=== PATIENT | male | born 1965 | race Caucasian/White ===

== ENCOUNTER 2023-08-27 11:17 | Emergency (ER) | payer BC, SELFPAY ==
[2023-08-27 11:19] VITALS: BP 129/80; PULSE 60; RESP 16; TEMP 36.6; O2SAT 97; BMI 27.7
--- NOTE | 2023-08-27 12:02 | ED.GENADULT ---
HPI - General Adult General Chief complaint: Neuro Symptoms/Altered Deficit Stated complaint: right arm and leg tingling Time Seen by Provider: 08/27/23 11:19 History of Present Illness HPI narrative: This 58-year-old male called in to clinic wanting an appointment because of tingling in his right arm and leg. He was instructed to be seen today to rule out a stroke. He went to urgent care and the nurse called here stating that they were unable to rule out a stroke. He was sent here for that purpose. The patient has not had any physician look at him through this whole process. He reports that he has had tingling in his right arm and leg for most of the past 3 or 4 years. He states that symptoms have worsened a little bit over the last 3 or 4 weeks. He had some difficulty sleeping because of these symptoms but reported that he switched his pillow and now he is sleeping well at night. He does not report any speech change or unilateral weakness. He is able to ambulate and function normally. He does not have any history of blood clot and has no risk factors other than age for stroke. He does not report a headache. He did have an MRI a couple years ago which showed degenerative changes in his neck and spine. Related Data Home Medications ?Medication ?Instructions ?Recorded ?Confirmed levothyroxine 150 mcg tablet 150 mcg PO DAILY 08/27/23 08/27/23 (Synthroid) Previous Rx's ?Medication ?Instructions ?Recorded cyclobenzaprine 10 mg tablet 10 mg PO TID #15 tabs 08/27/23 gabapentin 100 mg capsule 100 mg PO TID #30 caps 08/27/23 ketorolac 10 mg tablet 10 mg PO Q8H 5 days #15 tabs 08/27/23 methylprednisolone 4 mg tablets in See Rx Instructions PO .COMPLEX 08/27/23 a dose pack (Medrol (Yonathan)) #21 ea Allergies Allergy/AdvReac Type Severity Reaction Status Date / Time No Known Drug Allergies Allergy Verified 08/27/23 10:55 Review of Systems Status of ROS: Reports: 10 or more systems reviewed and unremarkable except as noted in History and below Narrative: Constitutional: No fevers, no weight gain or loss. Eyes: No discharge. No vision changes. HENT: No congestion, no sore throat, no ear pain. Cardiovascular: No chest pain, no palpitations. Respiratory: No shortness of breath, no wheezes, no cough. Gastrointestinal: No abdominal pain, no vomiting, no diarrhea. Genitourinary: No dysuria, no hematuria. Musculoskeletal: Normal range of motion. Skin: No rashes, no pruritis. Neurological: No dizziness, weakness, speech change. Chronic paresthesias in the right upper and lower extremity as described above. Endo/Heme/Allergies: No bruising or bleeding. No polydipsia. Pysch: no suicidality, no anxiety, no insomnia. All other systems reviewed and are negative. PFSH [facility] Social History Smoking Status: Never smoker How often do you have a drink containing alcohol: 4 or more times a week How many standard drinks containing alcohol do you have on a typical day: 1 or 2 How often do you have six or more drinks on one occasion: Never AUDIT-C Alcohol total score: 4 Non-prescribed substance use: denies use Exam Narrative: Exam Narrative: Constitutional: Well-developed, well-nourished, no acute distress. HEENT: Normocephalic, atraumatic. Neck: Normal range of motion. Nontender. Supple. Heart: Regular. No murmurs. Normal rate. Intact distal pulses. Lungs: Clear to auscultation. No chest discomfort. No wheezes, rhonchi, or rales. Abdomen: Normal bowel sounds. Nontender. No rebound tenderness. Genitalia: Deferred. Back: No midline tenderness. Normal range of motion. Extremities: Normal range of motion. No injury. Skin: Intact. No rash. Warm. No erythema or pallor. Neurologic: No weakness. Alert and oriented. No facial asymmetry. Tongue is midline. [id number] is normal. No pronator drift. 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 Able to raise each leg from the bed. Spurling's test is negative. He reports paresthesias in the right upper and lower extremity. He does have associated neck and back discomfort. Psychiatric: No suicidality. No anxiety or depression. No insomnia. Nursing notes and vitals signs are reviewed. Const: Vital Signs, click to edit/add: Vital Signs - 24 hr 08/27/23 11:19 Temperature 97.8 F Pulse Rate [Pulse Oximeter] 60 Respiratory Rate 16 Blood Pressure [Ri ght Upper Arm] 129/80 Pulse Oximetry 97 Oxygen Delivery Me thod Room Air Course Vital Signs Vital signs: Initial Vital Signs Temperature 97.8 F 08/27/23 11:19 Temperature Source Temporal Artery Scan 08/27/23 11:19 Pulse Rate 60 08/27/23 11:19 Respiratory Rate 16 08/27/23 11:19 Blood Pressure 129/80 08/27/23 11:19 Blood Pressure Mean 96 08/27/23 11:19 Blood Pressure Position Sitting 08/27/23 11:19 Pulse Oximetry 97 08/27/23 11:19 Oxygen Delivery Method Room Air 08/27/23 11:19 Vital Signs Temperature 97.8 F 08/27/23 11:19 Pulse Rate 60 08/27/23 11:19 Respiratory Rate 16 08/27/23 11:19 Blood Pressure 129/80 08/27/23 11:19 Pulse Oximetry 97 08/27/23 11:19 Oxygen Delivery Method Room Air 08/27/23 11:19 Temperature 97.8 F 08/27/23 11:19 Pulse Rate 60 08/27/23 11:19 Respiratory Rate 16 08/27/23 11:19 Blood Pressure 129/80 08/27/23 11:19 Pulse Oximetry 97 08/27/23 11:19 Oxygen Delivery Method Room Air 08/27/23 11:19 Medical Decision Making MDM Narrative Medical decision making narrative: This patient comes in after attempting to connect with 2 previous clinics. He was told to come here to rule out a stroke. His symptoms have been present for 3 or 4 years. His neurologic exam is completely normal. I did discuss diagnostic tools were used to rule out stroke but gave reassurance is with regard to his history and physical exam. In a process of shared decision making the patient declined any CT or imaging and lab studies at this time. His symptoms are much more typical of a radiculopathy. He has been going to a chiropractor without much relief. He has not taken any medicines except an over the counter herbal medicine which was possibly glucosamine and chondroitin sulfate. He states that this is not helping at all. I advised the patient to follow-up with a clinical exercise specialist and gave the phone number for our clinic here. I did provide prescriptions for Medrol Dosepak, Toradol, Flexeril, and gabapentin. Discharge Plan Discharge Clinical Impression: Cervical radiculopathy Patient Disposition: Home, Self-Care Condition: Stable Additional Instructions: Take medication as needed and indicated. Follow-up with primary physician or spine clinic for ongoing management and treatment. Call [phone] for appointment. Return if worsening. Prescriptions: New cyclobenzaprine 10 mg tablet 10 mg PO TID Qty: 15 0RF gabapentin 100 mg capsule 100 mg PO TID Qty: 30 2RF ketorolac 10 mg tablet 10 mg PO Q8H 5 Days Qty: 15 0RF methylprednisolone [Medrol (Yonathan)] 4 mg tablets,dose pack See Rx Instructions .ROUTE .COMPLEX Qty: 21 0RF Rx Instructions: orally per package directions No Action levothyroxine [Synthroid] 150 mcg tablet 150 mcg PO DAILY Follow Up/Referrals: Provider,Not a Local [Primary Care Provider] - Stand Alone Forms: Torrent LoadingSystemsth Info Instructions
--- OUTSIDE RECORDS SUMMARY | 2023-08-27 12:24 | XMS_ITS | Encounter Summary ---
Author Organization [facility] Address [address] [facility] [place] [address] Care Team Providers Care Respiratory Tech Name Role Phone Saúl Nails MD Primary Care Provider [phone] Reason for Visit * Reason Comments Esophageal Reflux Encounter Details Date Type Department Care Team (Late st Contact Info) Description 08/23/2023 Nurse Triage [address] [place] [phone] Saúl Nails MD [address] [place] [address] [address] [place] [address] Esophageal Reflux Social History Tobacco Use Types Packs/Day Years Used Date Smoking Tobacco: Never Smokeless Tobacco: Never Alcohol Use Standard Drinks/Week Comments Yes 20 (1 standard drink = 0.6 oz pu re alcohol) PHQ-2 Answer Date Recorded PHQ-2 Score 1 12/06/2022 Sex and Gender Information Value Date Recorded Sex Assigned at Not on file Gender Identity Not on file Sexual Orientation Not on file documented as of this encounter Nursing Notes * Nadya Santiago I RN - 08/23/2023 10:38 AM CDT Spoke to patient. Has had heartburn on and off for past 10 years. Treatment was changes to diet andmedication by a provider outside of the state. Stomach feels acidic and at night will feel nauseouswhen laying down. Patient will sit up and symptoms will go away eventually. No symptoms at the timeof call. Denies chest pain, vomiting or fever. Problem list reviewed as related to this call. Reason for Disposition Intermittent pains shoot into chest, with sour taste in mouth Protocols used: Abdominal Pain - [id number] documented in this encounter Plan of Treatment Upcoming Encounters Date Type Department Care Team (Late st Contact Info) Description 08/27/2023 1:30 PM CDT Appointment [address] [phone] Annia Alonso MD [address] [place] [address] [id number] 09/06/2023 9:00 AM CDT Telemedicine [address] [phone] Saúl Nails MD [address] [place] [id number] documented as of this encounter Visit Diagnoses Not on filedocumented in this encounter Care Teams Respiratory Tech Relationship Specialty Start Date End Date Saúl Nails MD [address] [place] [address] [id number] PCP - General Family Practice 11/07/21 documented as of this encounter
--- OUTSIDE RECORDS SUMMARY | 2023-08-27 12:24 | XMS_ITS | Encounter Summary ---
Author Organization [facility] Address [address] [facility] [place] [address] Care Team Providers Care Lab Head Name Role Phone Saúl Nails MD Primary Care Provider [phone] Reason for Visit * Reason Comments Neck Pain NUMBNESS Encounter Details Date Type Department Care Team (Late st Contact Info) Description 08/27/2023 Nurse Triage [address] [place] [phone] Saúl Nails MD [address] [place] [address] [address] [place] [address] Neck Pain; NUMBNESS Social History Tobacco Use Types Packs/Day Years [...] as of this encounter Nursing Notes * Abbi Cancino RN - 08/27/2023 8:18 AM CDT Spoke to patient. Reporting intermittent neck pain and numbness since 2019. Pt reports at the time had some imaging done and sees a chiropractor monthly basis but feels over the last few weeks this is worsening. Off and on numbness in right arm and leg. Tried new pillow has helped with the neck pain. Uses ice as well and this is helpful. Rates pain as 7/10. Denies difficulty breathing unusual sweating . No slurred speech or confusion. It is possible that you are experiencing a harmful medical condition for which doctor's office is not a safe place for your symptoms. Any delay in your care such as waiting for an appointment or being seen in the wrong place could be harmful to your health. You have the right to refuse my recommendation but I need to make sure you understand. Do you understand? Yes Problem list reviewed as related to this call. Reason for Disposition Numbness in an arm or hand (i.e., loss of sensation) Neurologic deficit of gradual onset (e.g., days to weeks), ANY of the following: * Weakness of the face, arm, or leg on one side of the body* Numbness of the face, arm, or leg on one side of the body* Loss of speech or garbled speech Protocols used: Neurologic [id number], Neck Pain or Tgibcanof-UCFCP-JE Future Appointments Date Time Provider Department Center 08/27/2023 1:30 PM Annia Alonso MD [facility] 09/06/2023 9:00 AM Saúl Nails MD [facility] documented in this encounter Plan of Treatment Upcoming Encounters Date Type Department Care Team (Late st Contact Info) Description 08/27/2023 1:30 PM CDT Appointment [address] [phone] Annia Alonso MD [address] [place] [address] [place] [address] 09/06/2023 9:00 AM CDT Telemedicine [address] [place] [phone] Saúl Nails MD [address] [place] [phone] documented as of this encounter Visit Diagnoses Not on filedocumented in this encounter Care Teams Lab Head Relationship Specialty Start Date End Date Saúl Nails MD [facility] [address] [place] [address] PCP - General Family Practice 11/07/21 documented as of this encounter
--- OUTSIDE RECORDS SUMMARY | 2023-08-27 12:24 | XMS_ITS | Clinical Summary ---
Author Organization [facility] Address [address] [place] [address] Care Team Providers Care Corn Cutter Name Role Phone Saúl Nails MD Primary Care Provider [phone] Source Comments You are receiving this document as you are listed as the primary care provider,follow-up provider, or the patient has been referred to you for consultation.This is in compliance with the Medicare and[facility] Cent[facility] EHR Incentive Program,which states Providers who transition their patient to another setting of careor provider of care or refers their patient to another provider of care shouldprovide summary care record for each transition of care or referral. [facility] Allergies No known active allergies Medications Medication Sig Dispensed Refills Start Date End Date Status SYNTHROID 150 MCG tablet 12/08/2019 Active Active Problems Problem Noted Date Diagnosed Date Hypothyroidism 07/01/2021 Encounters Date Type Department Care Team Description 08/27/2023 Nurse Triage [address] [address] [place] [phone] Saúl Nails MD Neck Pain; NUMBNESS 08/23/2023 Nurse Triage [address] [phone] Saúl Nails MD Esophageal Reflux from Last 3 Months Immunizations Name Administration Dates Next Due Flublok (RIV4) 12/21/2020,02/02/2020 Influenza (Flucelvax), Preserv Free QIV 12/07/19 23 Anum COVID-19 Vaccine 01/26/2021 Moderna Monovalent 12+ 05/06/2020,04/08/2020 Moderna Monovalent Booster 12+ 06/26/2021 Tdap 02/02/2020 Zoster RZV (Shingrix) 07/20/2021 Family History Medical History Relation Name Comments Stroke Father Elijah Depression Mother Vanessa Relation Name Status Comments Father Elijah Mother Vanessa Social History Tobacco Use Types Packs/Day Years Used Date Smoking Tobacco: Never Smokeless Tobacco: Never Tobacco Cessation:Counseling Given: Not Answered Alcohol Use Standard Drinks/Week Comments Yes 20 (1 standard drink = 0.6 oz pu re alcohol) PHQ-2 Answer Date Recorded PHQ-2 Score 1 12/06/2022 Sex and Gender Information Value Date Recorded Sex Assigned at Not on file Gender Identity Not on file Sexual Orientation Not on file Last Filed Vital Signs Vital Sign Reading Time Taken Comments Blood Pressure 136/80 01/03/2022 7:45 AM CDT Pulse 89 01/03/2022 7:45 AM CDT Temperature 36.8 ??C (98.2 ??F) 01/16/2021 8:54 AM CS T Respiratory Rate 14 01/16/2021 8:54 AM DYE TUB OPERATOR Oxygen Saturation 98% 01/16/2021 8:54 AM DYE TUB OPERATOR Inhaled Oxygen Concentration - - Weight 97.4 kg (214 lb 11.2 oz) 01/03/2022 7:45 AM CDT Height 182.9 cm (6') 06/26/2021 9:42 AM CDT Body Mass Index 29.12 06/26/2021 9:42 AM CDT Plan of Treatment Upcoming Encounters Date Type Department Care Team (Late st Contact Info) Description 08/27/2023 1:30 PM CDT Appointment [address] [place] [phone] Annia Alonso MD [address] [place], [place] [address] [id number] 09/06/2023 9:00 AM CDT Telemedicine [address] [place] [phone] Saúl Nails MD [address] [place] [id number] Health Maintenance Due Date Last Done Comments Colon Cancer Screening Plan Due 1965 PSA Screening Discussion 1965 HIV Screening (Preventive Services) 1979 Zoster/Shingles (2 of 2) 09/14/2021 07/20/2021 Adult Preventive Visit 06/26/2022 06/26/2021 COVID-19 Vaccine ( season) 2022 06/26/2021, 01/26/2021, 05/06/2020, Additional history exists Cholesterol 06/26/2026 06/26/2021 DTaP/Tdap/Td (2 - Tdap) 02/01/2030 02/02/2020 Hep C Screening (Preventive Services) Completed 06/26/2021 Influenza Completed 12/06/2022, 12/09, 02/02/2020 HepA Aged Out No longer eligi ble based on patient's age to complete this topic HepB Aged Out No longer eligi ble based on patient's age to complete this topic Hib Aged Out No longer eligi ble based on patient's age to complete this topic IPV (Polio) Aged Out No longer eligi ble based on patient's age to complete this topic MCV4 Aged Out No longer eligi ble based on patient's age to complete this topic Pneumococcal Aged Out No longer eligi ble based on patient's age to complete this topic Procedures Procedure Name Priority Date/Time Associated Diagnosis Comments HEPATITIS C ANTIBODY, WITH REFLEX Routine 06/26/2021 10:35 AM CDT Need for hepatitis C screening test LIPID PANEL & DIRECT LDL (IF NEEDED) Routine 06/26/2021 10:35 AM CDT Screening for hyperlipidemia from Last 3 Months or Most Recently Relevant to Health Maintenance Results * (ABNORMAL) Lipid Panel and Direct LDL(If Needed) (06/26/2021 10:35 AM CDT) Cholesterol 249(H) 0 - 199 mg/dL 06/26/2021 7:17 PM CDT [facility] Triglyceride 127 <=149 mg/dL 06/26/2021 7:17 PM CDT [facility] HDL Cholesterol 50 >=40 mg/dL 7:17 PM CDT [facility] LDL, Calculated 174(H) <130 mg/dL 2 7:17 PM CDT [facility] Non HDL Chol, Calculated 199(H) <=159 mg/dL 06/26/2021 7:17 PM CDT [facility] Cholesterol/HDL Ratio 5.0 06/26/2021 7:17 PM CDT [facility] Hours Fasting 12 06/26/2021 7:17 PM CDT [facility] Blood Venipuncture / Unknown 06/26/2021 10:35 AM CDT 06/26/2021 10:35 AM CDT Saúl Nails MD LAB_1 Performing Organization Address [facility] de Phone Number [facility] [address] LABORAT[facility] [address] [place] [address] * Hepatitis C Antibody, with Reflex (06/26/2021 10:35 AM CDT) Hepatitis C Antibody Negative (Non Reactive) Negative (Non Reactive) 06/26/2021 7:44 PM CDT [facility] Comment:Antibodies to HCV no t detected. Does not exclude the possiblity of exposure to HCV. Blood Venipuncture / Unknown 06/26/2021 10:35 AM CDT 06/26/2021 10:35 AM CDT Saúl Nails MD LAB_1 Performing Organization Address City/[facility]/ZIP Co de Phone Number [facility] [employer] [address] from Last 3 Months or Most Recently Relevant to Health Maintenance Care Teams Corn Cutter Relationship Specialty Start Date End Date Saúl Nails MD [address] [place] [id number] PCP - General Family Practice 11/07/21
== END 2023-08-27 12:23 | disposition home or self-care (01) ==
LOC: ED 12:22
PROVIDERS: Emergency Provider Emergency Medicine Emergency Medical Services
DX: M54.12 Radiculopathy, cervical region (principal)
CPT/HCPCS: 99283; 99284